=== PATIENT | female | born 1990 | race Caucasian/White ===

== ENCOUNTER 2017-03-12 22:54 | Emergency (ER) | payer SELFPAY ==
[2017-03-12 23:29] VITALS: BP 119/76
== END 2017-03-12 23:30 | disposition home or self-care (01) ==
LOC: ED 22:54
DX: S01.81XA Laceration without foreign body of other part of head, initial encounter (principal); V59.9XXA Occupant (driver) (passenger) of pick-up truck or van injured in unspecified traffic accident, initial encounter; Y93.89 Activity, other specified; Y92.89 Other specified places as the place of occurrence of the external cause; Y99.8 Other external cause status
CPT/HCPCS: J2001